=== PATIENT | female | born 1995 ===

== ENCOUNTER 2018-04-02 00:47 | Emergency (ER) | payer SELFPAY ==
--- NOTE | 2018-04-02 01:00 | C.PDOC ---
History Of Present Illness 22 year old female presents to the ED c/o itchy feeling in her throat, and a rash that occurred today. Patient states she went to a restaurant and after eating she developed the itchy feeling i her throat and the rash. Patient denies fever, chills, nausea, vomit, SOB. Time Seen by Provider: 04/02/18 00:59 Chief Complaint (Nursing): Allergic Reaction History Per: Patient History/Exam Limitations: no limitations Onset/Duration Of Symptoms: Hrs Current Symptoms Are (Timing): Still Present Context: Food Possible Cause: Food Associated Symptoms: Skin Rash, Itching Recent travel outside of the [place]: No Additional History Per: Patient Past Medical History Reviewed: Historical Data, Nursing Documentation, Vital Signs Vital Signs: Last Vital Signs Temp 97.9 F 04/02/18 01:08 Pulse 76 04/02/18 02:52 Resp 16 04/02/18 02:52 BP 121/70 04/02/18 02:52 Pulse Ox 100 04/02/18 02:52 - Medical History PMH: No Chronic Diseases Surgical History: No Surg Hx Family History: States: Unknown Family Hx - Social History Hx Alcohol Use: Yes Hx Substance Use: No Review Of Systems Constitutional: Negative for: Fever, Chills Eyes: Negative for: Vision Change ENT: Positive for: Throat Pain. Negative for: Ear Discharge, Nose Discharge, Nose Congestion Respiratory: Negative for: Cough, Shortness of Breath Gastrointestinal: Negative for: Nausea, Vomiting Skin: Positive for: Rash Physical Exam - Physical Exam Appears: Non-toxic, No Acute Distress Skin: Warm, Dry, Rash (diffuse urticarial rash) Head: Normacephalic Eye(s): bilateral: Normal Inspection Oral Mucosa: Moist Throat: No Erythema, No Exudate Neck: Supple Chest: Symmetrical Cardiovascular: Rhythm Regular Respiratory: No Rales, No Rhonchi, No Wheezing Gastrointestinal/Abdominal: Soft, No Tenderness, No Guarding, No Rebound Extremity: No Tenderness, No Swelling Extremity: Bilateral: Atraumatic, Normal Color And Temperature, Normal ROM Neurological/Psych: Oriented x3, Normal Speech Gait: Steady ED Course And Treatment O2 Sat by Pulse Oximetry: 97 (ON RA) Pulse Ox Interpretation: Normal Progress Note: Plan: - Benadryl 25 mg IVP. - Pepcid 20 mg IVP. - Solumedrol 125 mg IVP. - IV fluids Critical Care Time - Critical Care Note Total Time (in mins): 30 Documented critical care: time excludes all time spent performing seperately billable procedures. Disposition Counseled Patient/Family Regarding: Studies Performed, Diagnosis, Need For Followup, Rx Given - Disposition Referrals: [facility] [Outside] [facility] [Outside] Disposition: HOME/ ROUTINE Disposition Time: 01:00 Condition: FAIR Additional Instructions: Please return if symptoms recur Prescriptions: Epinephrine [Epipen] 0.3 mg IJ ONCE PRN #2 [email or web address] PRN Reason: Anaphylaxis Prednisone [Deltasone] 20 mg PO DAILY #5 tablet Instructions: Food Allergy, Skin Rash (DC) Forms: Instagram (Pashto) - Clinical Impression Clinical Impression: Allergic reaction - Scribe Statement The provider has reviewed the documentation as recorded by the Scribe Chris Demarco All medical record entries made by the Scribe were at my direction and personally dictated by me. I have reviewed the chart and agree that the record accurately reflects my personal performance of the history, physical exam, medical decision making, and the department course for this patient. I have also personally directed, reviewed, and agree with the discharge instructions and disposition.
[2018-04-02 01:09] VITALS: TEMP 97.9
[2018-04-02] MEDS ORDERED: DiphenhydrAMINE 50 mg/ml Inj ONE (01:09)
[2018-04-02] MEDS: DiphenhydrAMINE 50 mg/ml Inj IVP STA (01:30)
[2018-04-02] MEDS: Sodium Chloride 0.9% 1,000 ML IV ONE (02:10)
[2018-04-02 05:27] VITALS: BP 129/82; PULSE 69; RESP 18; O2SAT 98
== END 2018-04-02 05:30 | disposition home or self-care (01) ==
LOC: C.ER 00:47
DX: T78.40XA Allergy, unspecified, initial encounter (principal)